=== PATIENT | female | born 1945 | race Caucasian/White ===

== ENCOUNTER 2016-06-04 08:55 | Outpatient (CLI) | payer MEDICARE, OTHER | END 2016-06-04 08:56 | disposition home or self-care (01) | DX: R94.5 Abnormal results of liver function studies (principal); E78.5 Hyperlipidemia, unspecified; Z79.899 Other long term (current) drug therapy ==

== ENCOUNTER 2016-06-22 10:27 | Outpatient (CLI) | payer MEDICARE, OTHER | END 2016-06-22 10:28 | disposition home or self-care (01) | DX: N30.01 Acute cystitis with hematuria (principal) ==

== ENCOUNTER 2017-12-27 11:47 | Outpatient (CLI) | payer MEDICARE, OTHER ==
--- NOTE | 2017-12-27 16:49 | XRAY Report ---
Procedure Date: 12/27/2017 Accession Number: [id number] / [id number] Procedure: XR - Ankle 3 View LT CPT Code: FULL RESULT: EXAM: Ankle 3 View LT DATE: 12/27/2017 11:56 AM CLINICAL HISTORY: CHRONIC L ANKLE GOIUT,ANTERIOR COMPARISON: None. TECHNIQUE: 3 views. FINDINGS: Bones: Normal. No fractures or bone lesions. Joints: Normal. No tibiotalar joint effusion. No subluxations. Soft Tissues: Normal. No soft tissue swelling. IMPRESSION: No significant osseous erosions and no joint effusion is identified RADIA
== END 2017-12-27 11:48 | disposition home or self-care (01) ==
LOC: DI 11:47
PROVIDERS: ATTEND Podiatrist
DX: M1A.0720 Idiopathic chronic gout, left ankle and foot, without tophus (tophi) (principal)

== ENCOUNTER 2018-03-10 08:00 | Outpatient (CLI) | payer MEDICARE, OTHER | END 2018-03-10 08:01 | disposition home or self-care (01) | LOC: LAB.R 08:00 | PROVIDERS: ATTEND Physician Assistant Medical | DX: N30.00 Acute cystitis without hematuria (principal) | CPT/HCPCS: 87077; 87086 ==

== ENCOUNTER 2018-05-06 08:00 | Outpatient (CLI) | payer MEDICARE, OTHER | END 2018-05-06 23:59 | disposition home or self-care (01) | LOC: LAB.R 08:00 | PROVIDERS: ATTEND Physician Assistant Medical | DX: N30.00 Acute cystitis without hematuria (principal) | CPT/HCPCS: 87086 ==

== ENCOUNTER 2018-06-02 08:06 | Outpatient (CLI) | payer MEDICARE, OTHER ==
[2018-06-02 08:45] LABS: ALBUMIN 3.9 g/dL (3.2-5.5); ALBUMIN/GLOBULIN RATIO 1.5 (1.0-2.2); ALKALINE PHOSPHATASE 82 IU/L (42-121); ALT ALANINE AMINOTRANSFERASE 52 IU/L (10-60); AST ASPARTATE AMINOTRANSFERASE 37 IU/L (10-42); BILIRUBIN,TOTAL 0.7 mg/dL (0.2-1.0); BUN - BLOOD UREA NITROGEN 16 mg/dL (6-20); CARBON DIOXIDE - CO2 29 mmol/L (21-32); CHLORIDE 102 mmol/L (101-111); CHOL/HDL RATIO 2.2 (<4.4); CHOLESTEROL 168 mg/dL; CREATININE 0.6 mg/dL (0.4-1.0); GFR - MDRD 98 (>89); GLUCOSE 97 mg/dL (70-100); HDL CHOLESTEROL 76 mg/dL; LDL CHOLESTEROL,CALCULATED 73 mg/dL; SODIUM 137 mmol/L (135-145); TOTAL PROTEIN 6.5 g/dL (6.7-8.2); VLDL CHOLESTEROL 19 mg/dL
== END 2018-06-02 08:07 | disposition home or self-care (01) ==
LOC: LAB 08:06
PROVIDERS: ATTEND Physician Assistant Medical
DX: C91.00 Acute lymphoblastic leukemia not having achieved remission (principal); M19.90 Unspecified osteoarthritis, unspecified site; E78.5 Hyperlipidemia, unspecified; I10 Essential (primary) hypertension; Z79.899 Other long term (current) drug therapy
CPT/HCPCS: 36415; 80053; 80061; 83721; 84443

== ENCOUNTER 2018-06-05 08:00 | Outpatient (CLI) | payer MEDICARE, OTHER | END 2018-06-05 23:59 | disposition home or self-care (01) | LOC: LAB.R 08:00 | PROVIDERS: ATTEND Physician Assistant Medical | DX: N30.00 Acute cystitis without hematuria (principal) | CPT/HCPCS: 87086 ==

== ENCOUNTER 2018-06-13 14:57 | Outpatient (CLI) | payer MEDICARE, OTHER ==
--- NOTE | 2018-06-14 16:02 | Ultrasound Report ---
Reason: RECURRENT BACTERIAL CYSTITIS Procedure Date: 06/13/2018 Accession Number: [id number] / [id number] Procedure: US - Retroperitoneal CPT Code: FULL RESULT: EXAM: RENAL ULTRASOUND EXAM DATE: 06/13/2018 04:06 PM. CLINICAL HISTORY: Recurrent bacterial cystitis. COMPARISON: 08/02/2012 9:08 AM. TECHNIQUE: Real-time scanning was performed with static images obtained. FINDINGS: Right Kidney: 9.5 x 4.7 x 5.8 cm. Normal parenchymal echotexture. Mild hydronephrosis. No visualized shadowing stones. Left Kidney: 10.3 x 5.3 x 5.9 cm. Normal parenchymal echotexture. Mild hydronephrosis. No visualized shadowing stones. Bladder: Bilateral jets seen. Initial bladder volume 591 mL. Postvoid bladder volume 80 mL. Other: None. IMPRESSION: Mild bilateral hydronephrosis and 80 mL postvoid residual, raising concern for bladder outlet obstruction. RADIA
== END 2018-06-13 14:58 | disposition home or self-care (01) ==
LOC: DI 14:57
PROVIDERS: ATTEND Physician Assistant Medical
DX: N13.30 Unspecified hydronephrosis (principal)
CPT/HCPCS: 76770

== ENCOUNTER 2018-06-18 08:00 | Outpatient (CLI) | payer MEDICARE, OTHER | END 2018-06-18 23:59 | disposition home or self-care (01) | LOC: LAB.R 08:00 | PROVIDERS: ATTEND Physician Assistant Medical | DX: N39.0 Urinary tract infection, site not specified (principal) | CPT/HCPCS: 87086 ==

== ENCOUNTER 2018-08-01 09:53 | Outpatient (CLI) | payer MEDICARE, OTHER ==
--- NOTE | 2018-08-04 16:43 | DEXA Report ---
Reason: POSTMENOPAUSAL Procedure Date: 08/01/2018 Accession Number: [id number] / [id number] Procedure: DEX - Dexa Spine and/or Hip CPT Code: FULL RESULT: EXAM: Dexa Spine and/or Hip DATE: 08/01/2018 10:11 AM CLINICAL HISTORY: POSTMENOPAUSAL TECHNIQUE: Dual energy x-ray absorptiometry (DXA) was performed on a [employer] System. Regions measured are the AP Spine, femoral neck, and if needed forearm. COMPARISON: None. In accordance with the International Society for Clinical Densitometry (ISCD) guidelines, data from previous exams may be reanalyzed using current recommendations and techniques. This is done to allow a more accurate basis for comparison with the current study. FINDINGS: The data for the lumbar spine is as follows: BMD (g/cm/cm) T-SCORE Z-SCORE REGION L1 1.257 1.1 2.5 L2 1.363 1.4 2.8 L3 1.463 2.2 3.6 L4 1.378 1.5 2.9 TOTAL 1.368 1.6 3.0 NOTE: All evaluable vertebrae are used for classification The data for the hip is as follows: BMD (g/cm/cm) T-SCORE Z-SCORE REGION Neck 0.962 -0.5 1.1 TOTAL 1.074 0.5 1.9 NOTE: The femoral neck or total proximal femur, whichever is lowest, is used for classification. IMPRESSION: THE WHO CLASSIFICATION BASED ON THE INTERNATIONAL REFERENCE STANDARD IS NORMAL. THE FRACTURE RISK IS NOT INCREASED. RECOMMENDATION: Patients with diagnosis of osteoporosis or osteopenia should have regular bone mineral density assessment. For those eligible for Medicare, routine testing is allowed once every 2 years. Testing frequency can be increased for patients who have rapidly progressing disease or for those who are receiving medical therapy to restore bone mass. COMMENT: World Health Organization (WHO) definitions for osteoporosis and osteopenia: NORMAL BMD: T-score at -1.0 or higher, fracture risk is low OSTEOPENIA BMD: T-score between -1.0 and -2.5, fracture risk is increased. OSTEOPOROSIS BMD: T-score at -2.5 or lower, fracture risk is high. National Osteoporosis Foundation recommends: 1. Obtain adequate dietary calcium (at least 1200 mg per day) and vitamin D (400-800 international units per day). 2. Participate, as appropriate, in regular weightbearing and muscle-strengthening exercise. 3. Avoid tobacco use and reduce alcohol and caffeine intake. 4. For more detailed information see the website at www.NOF.org.
== END 2018-08-01 09:54 | disposition home or self-care (01) ==
LOC: DI 09:53
PROVIDERS: ATTEND Physician Assistant Medical
DX: Z78.0 Asymptomatic menopausal state (principal)
CPT/HCPCS: 77080

== ENCOUNTER 2018-09-01 09:45 | Outpatient (CLI) | payer MEDICARE, OTHER ==
[2018-09-01 11:03] LABS: CREATININE 0.7 mg/dL (0.4-1.0)
== END 2018-09-01 09:46 | disposition home or self-care (01) ==
LOC: LAB 09:45
PROVIDERS: ATTEND Urology
DX: R31.29 Other microscopic hematuria (principal)
CPT/HCPCS: 36415; 82565; 84520

== ENCOUNTER 2019-11-20 08:45 | Outpatient (CLI) | payer MEDICARE, OTHER ==
--- NOTE | 2019-11-23 09:29 | Mammography Report ---
BILATERAL DIGITAL SCREENING MAMMOGRAM 3D/2D: 11/20/2019 CLINICAL: Routine screening. Comparison is made to exams dated: 08/05/2018 mammogram, 08/05/2017 mammogram, and 06/09/2016 mammogram - [facility]. The tissue of both breasts is heterogeneously dense. This may lower the sensitivity of mammography. No significant masses, calcifications, or other findings are seen in either breast. There has been no significant interval change. IMPRESSION: NEGATIVE There is no mammographic evidence of malignancy. A 1 year screening mammogram is recommended. This exam was interpreted at Station ID: [id number]. NOTE: For mammograms, a report in lay terms will be sent to the patient. Approximately 15% of breast malignancies will not be visualized mammographically. In the management of a palpable breast mass, a negative mammogram must not discourage biopsy of a clinically suspicious lesion. Electronically Signed By: Sindhu park/junaa:11/20/2019 09:41:27 ACR BI-RADS Category 1: Negative 3341F PARENCHYMAL PATTERN: (D) - The breast(s) demonstrate(s) heterogeneously dense fibroglandular maria luisa humphries. BI-RADS CATEGORY: (1) - 1 RECOMMENDATION: (ANNUAL) - Recommend routine annual screening mammography. [id number] 1 year screening LATERALITY: (B)
== END 2019-11-20 08:46 | disposition home or self-care (01) ==
LOC: DI 08:45
PROVIDERS: ATTEND Family Medicine
DX: Z12.31 Encounter for screening mammogram for malignant neoplasm of breast (principal)
CPT/HCPCS: 77063; 77067

== ENCOUNTER 2020-12-15 08:00 | Outpatient (CLI) | payer MEDICARE, OTHER | END 2020-12-15 23:59 | disposition home or self-care (01) | LOC: LAB.WCP 08:00 | PROVIDERS: ATTEND Family Medicine | DX: N39.0 Urinary tract infection, site not specified (principal) | CPT/HCPCS: 87086 ==

== ENCOUNTER 2021-02-09 08:00 | Outpatient (CLI) | payer MEDICARE, OTHER ==
[2021-02-09 12:17] LABS: BILIRUBIN,URINE NEGATIVE (NEGATIVE); GLUCOSE, URINE (UA) NEGATIVE (NEGATIVE); KETONES,URINE (UA) NEGATIVE (NEGATIVE); LEUKOCYTE ESTERASE, URINE NEGATIVE (NEGATIVE); NITRITE,URINE NEGATIVE (NEGATIVE); OCCULT BLOOD,URINE TRACE-INTA (NEGATIVE); PROTEIN,URINE NEGATIVE (NEGATIVE); UROBILINOGEN,URINE 0.2 (NORMAL) E.U./dL (NORMAL)
[2021-02-09 13:08] LABS: BACTERIA,URINE Few /HPF (None Seen); CLARITY,URINE CLEAR (CLEAR); MUCUS,URINE Moderate Strands; RBC,URINE 0-5 /HPF (0-5); SQUAMOUS EPITHELIAL CELL,UR FEW Squamous (<= Few); WBC,URINE 0-3 /HPF (0-5)
== END 2021-02-09 23:59 | disposition home or self-care (01) ==
LOC: LAB.WCP 08:00
PROVIDERS: ATTEND Physician Assistant Medical
DX: N39.0 Urinary tract infection, site not specified (principal)
CPT/HCPCS: 81001; 87086

== ENCOUNTER 2021-02-10 08:00 | Outpatient (CLI) | payer MEDICARE, OTHER | END 2021-02-10 23:59 | disposition home or self-care (01) | LOC: LAB.WCP 08:00 | PROVIDERS: ATTEND Family Medicine | DX: N39.0 Urinary tract infection, site not specified (principal) | CPT/HCPCS: 87086 ==

== ENCOUNTER 2021-02-15 13:36 | Outpatient (CLI) | payer MEDICARE, OTHER | END 2021-02-15 13:37 | disposition home or self-care (01) | LOC: COV 13:36 | PROVIDERS: ATTEND Family Medicine | DX: U07.1 COVID-19 (principal) ==

== ENCOUNTER 2021-03-15 08:00 | Outpatient (CLI) | payer MEDICARE, OTHER ==
[2021-03-15 11:50] LABS: BASOPHILS # (AUTO) 0.1 10^3/uL (0.0-0.1); BASOPHILS % (AUTO) 1.4 %; EOSINOPHILS # (AUTO) 0.2 10^3/uL (0.0-0.7); EOSINOPHILS % (AUTO) 4.3 %; HCT - HEMATOCRIT 39.5 % (37.0-47.0); HGB - HEMOGLOBIN 12.7 g/dL (12.0-16.0); LYMPHOCYTES # (AUTO) 1.8 10^3/uL (1.5-3.5); LYMPHOCYTES % (AUTO) 34.9 %; MEAN CORPUSCULAR HGB CONC 32.2 g/dL (32.0-36.0); MEAN CORPUSCULAR VOLUME 93.4 fL (81.0-99.0); MEAN PLATELET VOLUME 12.6 fL (7.9-10.8); MONOCYTES # (AUTO) 0.7 10^3/uL (0.0-1.0); NEUTROPHILS # (AUTO) 2.3 10^3/uL (1.5-6.6); NEUTROPHILS % (AUTO) 44.8 %; PLT - PLATELET COUNT 132 10^3/uL (130-450); RED BLOOD COUNT 4.23 10^6/uL (4.20-5.40); RED CELL DISTRIBUTION WIDTH 16.4 % (12.0-15.0); WHITE BLOOD COUNT 5.1 x10^3/uL (4.8-10.8)
[2021-03-15 12:12] LABS: ALBUMIN 3.2 g/dL (3.2-5.5); ALBUMIN/GLOBULIN RATIO 1.1 (1.0-2.2); BILIRUBIN,TOTAL 1.8 mg/dL (0.2-1.0); CALCIUM 8.9 mg/dL (8.5-10.3); CREATININE 0.7 mg/dL (0.4-1.0)
== END 2021-03-15 23:59 | disposition home or self-care (01) ==
LOC: LAB.N 08:00
PROVIDERS: ATTEND Nurse Practitioner
DX: B34.9 Viral infection, unspecified (principal); R53.83 Other fatigue; R53.81 Other malaise; Z20.822 Contact with and (suspected) exposure to COVID-19
CPT/HCPCS: 36415; 80053; 85025; U0004

== ENCOUNTER 2021-03-15 08:00 | Outpatient (CLI) | payer MEDICARE, OTHER | END 2021-03-15 23:59 | disposition home or self-care (01) | LOC: LAB.N 08:00 | PROVIDERS: ATTEND Nurse Practitioner | DX: R53.81 Other malaise (principal); R53.83 Other fatigue ==

== ENCOUNTER 2021-03-16 16:22 | Outpatient (CLI) | payer MEDICARE, OTHER ==
[2021-03-16 21:04] LABS: ALBUMIN/GLOBULIN RATIO 1.1 (1.0-2.2); CALCIUM 8.7 mg/dL (8.5-10.3); CREATININE 0.9 mg/dL (0.4-1.0); POTASSIUM 4.4 mmol/L (3.5-5.0); TOTAL PROTEIN 5.8 g/dL (6.7-8.2)
[2021-03-18 10:05] LABS: HEPATITIS A IGM NON-REACTIVE (NON-REACTIVE); HEPATITIS B CORE ANTIBODY IGM NON-REACTIVE (NON-REACTIVE); HEPATITIS B SURFACE ANTIGEN NON-REACTIVE (NON-REACTIVE); HEPATITIS C ANTIBODY NON-REACTIVE (NON-REACTIVE)
== END 2021-03-16 16:23 | disposition home or self-care (01) ==
LOC: LAB.N 16:22
PROVIDERS: ATTEND Family Medicine
DX: R79.89 Other specified abnormal findings of blood chemistry (principal)
CPT/HCPCS: 36415; 80053; 80074

== ENCOUNTER 2021-03-17 03:55 | Emergency (ER) | payer MEDICARE, OTHER ==
--- NOTE | 2021-03-17 04:01 | ED Physician Documentation ---
History of Present Illness - Stated complaint Stated Complaint: WEAKNESS/N/V/FEVER - History obtained from History obtained from: Patient - History of Present Illness Timing: How many weeks ago (1) Pain level now: 2 (only pain c/o is my rectum (per patient) which she attributes to diarrhea) Improved by: no ameliorating factors Worsened by: no exacerbating factors Associated symptoms: nausea, poor appetite - Additonal information Additional information: c/o 1 week of generalized weakness, poor appetite, nausea and diarrhea. She describes poor po intake over past week due to no appetite although she denies abdominal pain. She has nausea but no vomiting; she tolerates PO but describes a decreased appetite to the point of aversion to the thought of eating or drinking. She is COVID vaccinated (Moderna) but had PCR COVID positive result last month (02/15). She had outpatient blood tests yesterday and two days ago and was noted to have abnormal LFTs which is new for her. She has been having fevers at home Tmax 101, most recent measurement was 2 days ago; she did not take her temperature today due to malaise and generalized weakness Review of Systems Constitutional: reports: Fever, Chills, Sweats Cardiac: reports: Reviewed and negative Respiratory: reports: Reviewed and negative GI: reports: Nausea, Diarrhea. denies: Abdominal Pain, Abdominal Swelling, Vomiting, Bloody / black stool : denies: Dysuria, Frequency Neurologic: reports: Generalized weakness. 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 HEENT: Tonsil/Adenoidectomy - Present Medications Home Medications: Ambulatory Orders Medication Instructions Recorded Confirmed Aspirin Chewable [[place]ito 81 mg PO DAILY 01/12/13 03/17/21 Aspirin] lisinopriL [Zestril] 10 mg PO DAILY 01/12/13 03/17/21 Atorvastatin [Lipitor] 40 mg PO DAILY 01/10/15 03/17/21 Cyanocobalamin (Vitamin B-12) 1 cap PO DAILY 06/17/17 03/17/21 [Vitamin B-12] Iron Polysaccharide Complex 1 cap PO DAILY 06/17/17 03/17/21 [Ferrex 150] ALPRAZolam [Alprazolam] 1 tab PO DAILY 11/04/17 03/17/21 Ibrutinib [Imbruvica] 1 tab PO DAILY 11/04/17 03/17/21 Propranolol [Inderal] 10 mg PO BID 10/13/18 03/17/21 Meloxicam [Mobic] 15 mg PO QID 03/17/21 03/17/21 Ondansetron Odt [Zofran] 4 mg TL Q6H PRN #14 tablet 03/17/21 - Allergies Allergies/Adverse Reactions: Allergies Allergy/AdvReac Type Severity Reaction Status Date / Time Sulfa (Sulfonamide Allergy Respiratory Verified 03/17/21 04:13 Antibiotics) PD ED PE NORMAL - Vitals Vital signs reviewed: Yes - General General: Alert and oriented X 3, No acute distress, Well developed/nourished - HEENT HEENT: Other (tacky mucous membranes) - Neck Neck: Supple, no meningeal sign - Cardiac Cardiac: RRR, No murmur - Respiratory Respiratory: No respiratory distress, Clear bilaterally - Abdomen Abdomen: Soft, Non distended, Other (mild TTP across upper abdomen without guarding or rebound) - Back Back: No CVA TTP - Derm Derm: Normal color, Warm and dry - Extremities Extremities: No edema - Neuro Neuro: Alert and oriented X 3 Results - Vitals Vitals: Oxygen O2 Source Room air - Labs Labs: Laboratory Tests 03/17/21 03/17/21 03/17/21 04:24 04:24 04:24 WBC 6.5 RBC 4.11 L Hgb 12.3 Hct 38.0 MCV 92.5 MCH 29.9 MCHC 32.4 RDW 16.0 H Plt Count 132 MPV 12.0 H Neut # (Auto) 3.9 Lymph # (Auto) 1.6 [place] # (Auto) 0.8 Eos # (Auto) 0.1 Baso # (Auto) 0.1 Absolute Nucleated RBC 0.00 Nucleated RBC % 0.0 PT 13.1 H INR 1.2 APTT 24.8 L Sodium 136 Potassium 3.8 Chloride 99 L Carbon Dioxide 25 Anion Gap 12.0 BUN 14 Creatinine 1.0 Estimated GFR (MDRD) 54 L Glucose 147 H Lactic Acid Calcium 8.5 Total Bilirubin 2.3 H AST 227 H ALT 266 H Alkaline Phosphatase 456 H Total Protein 5.7 L Albumin 2.9 L Globulin 2.8 Albumin/Globulin Ratio 1.0 Lipase 37 Nasal Adenovirus (PCR) Nasal B. parapertussis DNA (PCR) Nasal Coronavir 229E PCR Nasal Coronavir HKU1 PCR Nasal Coronavir NL63 PCR Nasal Coronavir OC43 PCR Nasal Enterovir/Rhinovir PCR Nasal Influenza B PCR Nasal Influenza A PCR Nasal Parainfluen 1 PCR Nasal Parainfluen 2 PCR Nasal Parainfluen 3 PCR Nasal Parainfluen 4 PCR Nasal RSV (PCR) Nasal B.pertussis DNA PCR Nasal C.pneumoniae (PCR) [place] Human Metapneumo PCR Nasal M.pneumoniae (PCR) Nasal SARS-CoV-2 (PCR) Hepatitis A IgM Ab Hep Bs Antigen Hep B Core IgM Ab Hepatitis C Antibody Hep C Ab Signal/Cutoff 03/17/21 03/17/21 03/17/21 04:24 04:24 04:25 WBC RBC Hgb Hct MCV MCH MCHC RDW Plt Count MPV Neut # (Auto) Lymph # (Auto) [place] # (Auto) Eos # (Auto) Baso # (Auto) Absolute Nucleated RBC Nucleated RBC % PT INR APTT Sodium Potassium Chloride Carbon Dioxide Anion Gap BUN Creatinine Estimated GFR (MDRD) Glucose Lactic Acid 1.6 Calcium Total Bilirubin AST ALT Alkaline Phosphatase Total Protein Albumin Globulin Albumin/Globulin Ratio Lipase Nasal Adenovirus (PCR) NOT DETECTED Nasal B. parapertussis DNA (PCR) NOT DETECTED Nasal Coronavir 229E PCR NOT DETECTED Nasal Coronavir HKU1 PCR NOT DETECTED Nasal Coronavir NL63 PCR NOT DETECTED Nasal Coronavir OC43 PCR NOT DETECTED Nasal Enterovir/Rhinovir PCR NOT DETECTED Nasal Influenza B PCR NOT DETECTED Nasal Influenza A PCR NOT DETECTED Nasal Parainfluen 1 PCR NOT DETECTED Nasal Parainfluen 2 PCR NOT DETECTED Nasal Parainfluen 3 PCR NOT DETECTED Nasal Parainfluen 4 PCR NOT DETECTED Nasal RSV (PCR) NOT DETECTED Nasal B.pertussis DNA PCR NOT DETECTED Nasal C.pneumoniae (PCR) NOT DETECTED [place] Human Metapneumo PCR NOT DETECTED Nasal M.pneumoniae (PCR) NOT DETECTED Nasal SARS-CoV-2 (PCR) DETECTED A Hepatitis A IgM Ab NON-REACTIVE Hep Bs Antigen NON-REACTIVE Hep B Core IgM Ab NON-REACTIVE Hepatitis C Antibody NON-REACTIVE Hep C Ab Signal/Cutoff 0.00 - Rads (name of study) RUQ US Radiology: Prelim report reviewed, See rad report PD MEDICAL DECISION MAKING - ED course Complexity details: reviewed old records, reviewed results, re-evaluated patient, considered differential, d/w patient ED course: presents for 1 week of nausea, poor appetite resulting in poor PO intake. She is COVID positive on tonights testing, although she was noted to be COVID positive last month as well despite having been COVID vaccinated. US reveals GB wall thickening but no evidence of gallstones, normal CBD measurement, negative sonographic [place] sign. Aferbile in ED with normal WBC and normal lactate. 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 Previous LFTs have been normal except for minimal elevations in billirubin (no higher than 1.1 and mildly elevated alkaline phosphatase on a few previous results). I discussed results with Dr. Watson, surgeon distribution center assistant for [facility]. Given that patient has minimal tenderness on exam, is in NAD, resolution of nausea with IV zorfran and lack of abdominal pain c/o, recommends outpatient follow up and return precautions but no indication/necessity for admission at this time. I reviewed results with patient and she is comfortable with this plan. She was given 2 liters NS in ED and 4mg IV zofran and reported improvement in symptoms with these measures. I discussed US results with patient including incidental finding of pancreatic abnormality of indeterminate nature and instructed her to follow up with her primary care provider for both her acute symptoms as well as consideration of further testing regarding the pancreatic US finding. On reexamination prior to discharge she is in NAD, mucous membranes are moist and her abdomen is nontender to palpation. Departure - Departure Disposition: 01 Home, Self Care Clinical Impression: Abnormal LFTs (liver function tests), COVID-19 Nausea & vomiting Qualifiers: Vomiting type: unspecified Vomiting Intractability: non-intractable Qualified Code(s): R11.2 - Nausea with vomiting, unspecified Instructions: ED Vomiting Diarrhea Nonspecific Ad Follow-Up: Charly Paz MD [Primary Care Provider] - Prescriptions: Ondansetron Odt [Zofran] 4 mg TL Q6H PRN #14 tablet PRN Reason: Nausea / Vomiting Comments: A prescription for ondansetron (antinausea medication) has been electronically submitted to [facility] pharmacy in [place] Discharge Date/Time: 03/17/21 11:00
[2021-03-17 04:35] LABS: BASOPHILS # (AUTO) 0.1 10^3/uL (0.0-0.1); BASOPHILS % (AUTO) 1.1 %; EOSINOPHILS # (AUTO) 0.1 10^3/uL (0.0-0.7); HGB - HEMOGLOBIN 12.3 g/dL (12.0-16.0); LYMPHOCYTES # (AUTO) 1.6 10^3/uL (1.5-3.5); LYMPHOCYTES % (AUTO) 25.1 %; MEAN CORPUSCULAR HEMOGLOBIN 29.9 pg (27.0-31.0); MEAN CORPUSCULAR HGB CONC 32.4 g/dL (32.0-36.0); MEAN CORPUSCULAR VOLUME 92.5 fL (81.0-99.0); MONOCYTES # (AUTO) 0.8 10^3/uL (0.0-1.0); MONOCYTES % (AUTO) 11.6 %; NEUTROPHILS # (AUTO) 3.9 10^3/uL (1.5-6.6); NEUTROPHILS % (AUTO) 59.6 %; PLT - PLATELET COUNT 132 10^3/uL (130-450); RED BLOOD COUNT 4.11 10^6/uL (4.20-5.40); WHITE BLOOD COUNT 6.5 x10^3/uL (4.8-10.8)
[2021-03-17 04:42] LABS: INR 1.2 (0.8-1.2); PT - PROTHROMBIN TIME 13.1 secs (9.9-12.6)
[2021-03-17 04:46] LABS: ALBUMIN 2.9 g/dL (3.2-5.5); BILIRUBIN,TOTAL 2.3 mg/dL (0.2-1.0); CALCIUM 8.5 mg/dL (8.5-10.3); POTASSIUM 3.8 mmol/L (3.5-5.0); TOTAL PROTEIN 5.7 g/dL (6.7-8.2)
[2021-03-17 04:49] LABS: PARTIAL THROMBOPLASTIN TIME 24.8 secs (24.9-33.3)
[2021-03-17] MEDS ORDERED: ONDANSETRON 4 MG/2 ML VIAL IVP STA (04:53)
[2021-03-17] MEDS ORDERED: SODIUM CHLORIDE 0.9% 1,000 ML IV STA ×2 (04:53→08:59)
[2021-03-17 06:09] LABS: CORONAVIRUS 229E-RESP PCR NOT DETECTED; CORONAVIRUS HKU1-RESP PCR NOT DETECTED; CORONAVIRUS NL63-RESP PCR NOT DETECTED; CORONAVIRUS OC43-RESP PCR NOT DETECTED
[2021-03-17 06:11] LABS: B. PARAPERTUSSIS- RESP PCR PAN NOT DETECTED; B. PERTUSSIS- RESP PCR PANEL NOT DETECTED; C. PNEUMONIAE- RESP PCR PANEL NOT DETECTED; HUMAN METAPNEUMOVIRUS NOT DETECTED; INFLUENZA A- RESP PCR PANEL NOT DETECTED; INFLUENZA B - RESP PCR PANEL NOT DETECTED; M. PNEUMONIAE- RESP PCR PANEL NOT DETECTED; PARAINFLUENZA VIRUS 1 NOT DETECTED; PARAINFLUENZA VIRUS 2 NOT DETECTED; PARAINFLUENZA VIRUS 3 NOT DETECTED; PARAINFLUENZA VIRUS 4 NOT DETECTED; RHINOVIRUS/ENTEROVIRUS NOT DETECTED; RSV- RESP PCR PANEL NOT DETECTED; SARS-CoV-2 -RESP PCR PANEL DETECTED
--- NOTE | 2021-03-17 08:14 | Ultrasound Report ---
PROCEDURE: Abdomen Limited INDICATIONS: Fever, abnormal LFTs, abdominal tenderness TECHNIQUE: Real-time focused scanning was performed of the abdomen, with image documentation. COMPARISON: Reference is made to the renal ultrasound dated June 13, 2018 FINDINGS: AORTA: The visualized abdominal aorta is normal. IVC: The visualized IVC is normal. LIVER: The liver is normal in size and contour. No focal abnormalities are seen. The portal vein is patent. PANCREAS: A hypoechoic lesion is seen in the pancreatic head region, measuring 1.4 x 0.6 x 0.7 cm. No pancreatic duct dilatation is appreciated. Gallbladder and biliary tree: Gallbladder wall thickening, measuring up to 4.7 mm. Small amount of dependent echogenic material, which may reflect sludge and/or stones. No pericholecystic fluid or son ographic Lazar sign. The CBD measures 3.2 mm. RIGHT KIDNEY: Hypoechoic lesions in the parapelvic region, which may reflect cyst. Punctate echogen ic focus in the lower pole, measuring up to 4.7 mm Measures 11.1 cm in length. The renal cortex measu res 1.4 cm. Cortical hypoattenuating lesion in the lower pole measuring up to 2.4 cm, compatible with a cyst. No evidence for ascites. IMPRESSION: 1.Hypoechoic lesion in the region of the pancreatic head, which is nonspecific. Differential consider ations include a pancreatic cystic lesion or pseudocyst. Consider CT or MR imaging for further evalua tion. 2.Gallbladder wall thickening with small amount of dependent echogenic material, which may reflect sl udge and/or stones. 3.Right renal parapelvic and cortical cysts. Reviewed by: Ariel Bay MD on 03/17/2021 8:13 AM PDT Approved by: Ariel Bay MD on 03/17/2021 8:13 AM PDT Station ID: [id number]
[2021-03-17 09:18] VITALS: BP 158/71
[2021-03-18 10:05] LABS: HEPATITIS A IGM NON-REACTIVE (NON-REACTIVE); HEPATITIS B CORE ANTIBODY IGM NON-REACTIVE (NON-REACTIVE); HEPATITIS B SURFACE ANTIGEN NON-REACTIVE (NON-REACTIVE); HEPATITIS C ANTIBODY NON-REACTIVE (NON-REACTIVE)
== END 2021-03-17 11:00 | disposition home or self-care (01) ==
LOC: ED 03:55
DX: U07.1 COVID-19 (principal); R94.5 Abnormal results of liver function studies; R11.2 Nausea with vomiting, unspecified; R93.3 Abnormal findings on diagnostic imaging of other parts of digestive tract
CPT/HCPCS: 0202U; 36415; 80053; 80074; 83605; 83690; 85025; 85610; 85730; 96361; 96374; 99283

== ENCOUNTER 2021-03-28 08:00 | Outpatient (CLI) | payer MEDICARE, OTHER ==
[2021-03-28 18:20] LABS: BASOPHILS # (AUTO) 0.1 10^3/uL (0.0-0.1); BASOPHILS % (AUTO) 1.5 %; EOSINOPHILS # (AUTO) 0.6 10^3/uL (0.0-0.7); EOSINOPHILS % (AUTO) 6.6 %; HCT - HEMATOCRIT 37.4 % (37.0-47.0); HGB - HEMOGLOBIN 11.6 g/dL (12.0-16.0); LYMPHOCYTES # (AUTO) 3.3 10^3/uL (1.5-3.5); LYMPHOCYTES % (AUTO) 34.8 %; MEAN CORPUSCULAR HEMOGLOBIN 30.3 pg (27.0-31.0); MEAN CORPUSCULAR VOLUME 97.7 fL (81.0-99.0); MEAN PLATELET VOLUME 11.8 fL (7.9-10.8); MONOCYTES # (AUTO) 0.9 10^3/uL (0.0-1.0); MONOCYTES % (AUTO) 9.4 %; NEUTROPHILS # (AUTO) 4.4 10^3/uL (1.5-6.6); NEUTROPHILS % (AUTO) 47.1 %; PLT - PLATELET COUNT 333 10^3/uL (130-450); RED BLOOD COUNT 3.83 10^6/uL (4.20-5.40); RED CELL DISTRIBUTION WIDTH 16.9 % (12.0-15.0); WHITE BLOOD COUNT 9.4 x10^3/uL (4.8-10.8)
[2021-03-28 18:57] LABS: ALBUMIN 2.6 g/dL (3.2-5.5); BILIRUBIN,TOTAL 1.1 mg/dL (0.2-1.0); CALCIUM 9.5 mg/dL (8.5-10.3); CREATININE 0.5 mg/dL (0.4-1.0); TOTAL PROTEIN 5.2 g/dL (6.7-8.2)
== END 2021-03-28 23:59 | disposition home or self-care (01) ==
LOC: LAB.WCP 08:00
PROVIDERS: ATTEND Family Medicine
DX: R79.89 Other specified abnormal findings of blood chemistry (principal)
CPT/HCPCS: 36415; 80053; 85025

== ENCOUNTER 2021-04-11 08:00 | Outpatient (CLI) | payer MEDICARE, OTHER ==
[2021-04-11 12:54] LABS: BILIRUBIN,URINE NEGATIVE (NEGATIVE); GLUCOSE, URINE (UA) NEGATIVE (NEGATIVE); KETONES,URINE (UA) NEGATIVE (NEGATIVE); LEUKOCYTE ESTERASE, URINE SMALL (NEGATIVE); NITRITE,URINE NEGATIVE (NEGATIVE); OCCULT BLOOD,URINE NEGATIVE (NEGATIVE); PH,URINE 7.5 PH (5.0-7.5); PROTEIN,URINE NEGATIVE (NEGATIVE); UROBILINOGEN,URINE 0.2 (NORMAL) E.U./dL (NORMAL)
[2021-04-11 12:57] LABS: CLARITY,URINE CLEAR (CLEAR)
[2021-04-11 13:08] LABS: THYROID STIMULATING HORMONE 1.52 uIU/mL (0.34-5.60)
[2021-04-11 13:26] LABS: BACTERIA,URINE Rare /HPF (None Seen); EPITHELIAL CELLS,UR MOD Transitional /HPF (<= Few); MUCUS,URINE Moderate Strands; RBC,URINE 0-5 /HPF (0-5); SQUAMOUS EPITHELIAL CELL,UR FEW Squamous (<= Few)
== END 2021-04-11 23:59 | disposition home or self-care (01) ==
LOC: LAB.WCP 08:00
PROVIDERS: ATTEND Family Medicine
DX: R63.0 Anorexia (principal); E88.09 Other disorders of plasma-protein metabolism, not elsewhere classified; C91.00 Acute lymphoblastic leukemia not having achieved remission; R06.09 Other forms of dyspnea
CPT/HCPCS: 36415; 81001; 83880; 84134; 84443; 87086

== ENCOUNTER 2021-08-04 08:27 | Outpatient (CLI) | payer MEDICARE, OTHER | END 2021-08-04 08:28 | disposition home or self-care (01) | LOC: LAB 08:27 | PROVIDERS: ATTEND Family Medicine | DX: R73.9 Hyperglycemia, unspecified (principal) ==

== ENCOUNTER 2022-08-31 17:50 | Emergency (ER) | payer MEDICARE, OTHER ==
--- NOTE | 2022-08-31 18:22 | ED Physician Documentation ---
History of Present Illness - Stated complaint Stated Complaint: SORE THROAT,FEVER - Chief complaint Chief Complaint: Heent - Additonal information Additional information: 77-year-old female who has a history of chronic lymphocytic leukemia presents to the emergency department for evaluation of 2 days of fevers up to 101, malaise, sore throat and cough. Was seen at a local walk-in clinic where she reportedly tested negative for strep and was advised to come to the ER for further evaluation. Patient reports to me that from the neck up she feels horrible but from the chest down feels otherwise well. She does endorse chronic diarrhea secondary to her ibrutinib 420. Denies chest pain or shortness of air. No dysuria urgency or frequency Review of Systems Constitutional: reports: Fever, Myalgias, Fatigue Nose: reports: Congestion Throat: reports: Sore throat Cardiac: reports: Reviewed and negative Respiratory: reports: Cough GI: reports: Diarrhea, Reviewed and negative : reports: Reviewed and negative Skin: reports: Reviewed and negative Musculoskeletal: reports: Reviewed and negative PD PAST MEDICAL HISTORY - Past Medical History Cardiovascular: Hypertension, High cholesterol Respiratory: Asthma GI: GERD Psych: None Musculoskeletal: Osteoarthritis - Past Surgical History Past Surgical History: Yes General: Colonoscopy Ortho: 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: Hysterectomy HEENT: Tonsil/Adenoidectomy - Present Medications Home Medications: Ambulatory Orders Medication Instructions Recorded Confirmed Aspirin Chewable [[place] Tito 81 mg PO DAILY 01/12/13 06/11/22 Aspirin] lisinopriL [Zestril] 10 mg PO DAILY 01/12/13 06/11/22 Atorvastatin [Lipitor] 40 mg PO DAILY 01/10/15 06/11/22 ALPRAZolam [Alprazolam] 1 tab PO DAILY 11/04/17 06/11/22 Propranolol [Inderal] 10 mg PO BID 10/13/18 06/11/22 Meloxicam [Mobic] 15 mg PO QID 03/17/21 06/11/22 Omeprazole 40 mg PO DAILY 04/03/21 06/11/22 Ibrutinib [Imbruvica] 420 mg PO DAILY 11/21/21 06/11/22 Cefpodoxime Proxetil [Vantin] 100 mg PO Q12H #14 tablet 08/31/22 Lidocaine Topical 4% Soln 5 ml MM TID #50 ml 08/31/22 [Xylocaine Topical 4% Soln] - Allergies Allergies/Adverse Reactions: Allergies Allergy/AdvReac Type Severity Reaction Status Date / Time Sulfa (Sulfonamide Allergy Respiratory Verified 08/31/22 17:59 Antibiotics) - Social History Does the pt smoke?: No Smoking Status: Never smoker Does the pt drink ETOH?: No Does the pt have substance abuse?: No - Immunizations Immunizations are current?: Yes - POLST Patient has POLST: No PD ED PE NORMAL - General General: Alert and oriented X 3, No acute distress - HEENT HEENT: PERRL, Moist mucous membranes, Pharynx benign (Mild posterior oropharynx erythema without tonsillar exudate. Uvula is midline. No soft palate asymmetry or swelling. Mild laryngitis. Full range of motion of the neck. 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 Eye Opening: Spontaneous Motor: Obeys Commands Verbal: Oriented GCS Score: 15 Results - Vitals Vitals: Vital Signs - 24 hr 08/31/22 08/31/22 17:57 20:49 Temperature 36.8 C 37.1 C Heart Rate 94 93 Respiratory 20 18 Rate Blood Pressure 153/72 H 155/70 H O2 Saturation 98 96 Oxygen O2 Source Room air - Labs Labs: Laboratory Tests 08/31/22 08/31/22 08/31/22 18:25 18:25 18:45 WBC 10.9 H RBC 4.32 Hgb 13.0 Hct 40.1 MCV 92.8 MCH 30.1 MCHC 32.4 RDW 15.3 H Plt Count 185 MPV 11.9 H Neut # (Auto) 7.1 H Lymph # (Auto) 2.5 Gooding # (Auto) 1.2 H Eos # (Auto) 0.0 Baso # (Auto) 0.1 Absolute Nucleated RBC 0.00 Nucleated RBC % 0.0 Sodium 137 Potassium 3.6 Chloride 100 L Carbon Dioxide 27 Anion Gap 10.0 BUN 13 Creatinine 0.7 Estimated GFR (MDRD) 81 L Glucose 124 H Calcium 9.0 Total Bilirubin 1.5 H AST 49 H ALT 42 Alkaline Phosphatase 216 H Total Protein 6.8 Albumin 3.8 Globulin 3.0 Albumin/Globulin Ratio 1.3 Lipase 30 Urine Color YELLOW Urine Clarity CLOUDY Urine pH 6.0 Ur Specific [place] 1.020 Urine Protein TRACE Urine Glucose (UA) NEGATIVE Urine Ketones 40 H Urine Occult Blood MODERATE H Urine Nitrite POSITIVE H Urine Bilirubin NEGATIVE Urine Urobilinogen 0.2 (NORMAL) Ur Leukocyte Esterase LARGE H Urine RBC 6-10 H Urine WBC >25 H Ur Squamous Epith Cells RARE Squamous Urine Bacteria Many H Ur Microscopic Review INDICATED Urine Culture Comments INDICATED Nasal Adenovirus (PCR) Nasal B. parapertussis DNA (PCR) Nasal Coronavir 229E PCR Nasal Coronavir HKU1 PCR Nasal Coronavir NL63 PCR Nasal Coronavir OC43 PCR Nasal Enterovir/Rhinovir PCR Nasal Influenza B PCR Nasal Influenza A PCR Nasal Parainfluen 1 PCR Nasal Parainfluen 2 PCR Nasal Parainfluen 3 PCR Nasal Parainfluen 4 PCR Nasal RSV (PCR) Nasal B.pertussis DNA PCR Nasal C.pneumoniae (PCR) Torito Human Metapneumo PCR Nasal M.pneumoniae (PCR) Nasal SARS-CoV-2 (PCR) Group A Strep Rapid 08/31/22 08/31/22 18:45 18:45 WBC RBC Hgb Hct MCV MCH MCHC RDW Plt Count MPV Neut # (Auto) Lymph # (Auto) [place] # (Auto) Eos # (Auto) Baso # (Auto) Absolute Nucleated RBC Nucleated RBC % Sodium Potassium Chloride Carbon Dioxide Anion Gap BUN Creatinine Estimated GFR (MDRD) Glucose Calcium Total Bilirubin AST ALT Alkaline Phosphatase Total Protein Albumin Globulin Albumin/Globulin Ratio Lipase Urine Color Urine Clarity Urine pH Ur Specific [place] Urine Protein Urine Glucose (UA) Urine Ketones Urine Occult Blood Urine Nitrite Urine Bilirubin Urine Urobilinogen Ur Leukocyte Esterase Urine RBC Urine WBC Ur Squamous Epith Cells Urine Bacteria Ur Microscopic Review Urine Culture Comments Nasal Adenovirus (PCR) NOT DETECTED Nasal B. parapertussis DNA (PCR) NOT DETECTED Nasal Coronavir 229E PCR NOT DETECTED Nasal Coronavir HKU1 PCR NOT DETECTED Nasal Coronavir NL63 PCR NOT DETECTED Nasal Coronavir OC43 PCR NOT DETECTED Nasal Enterovir/Rhinovir PCR NOT DETECTED Nasal Influenza B PCR NOT DETECTED Nasal Influenza A PCR NOT DETECTED Nasal Parainfluen 1 PCR NOT DETECTED Nasal Parainfluen 2 PCR NOT DETECTED Nasal Parainfluen 3 PCR NOT DETECTED Nasal Parainfluen 4 PCR NOT DETECTED Nasal RSV (PCR) NOT DETECTED Nasal B.pertussis DNA PCR NOT DETECTED Nasal C.pneumoniae (PCR) NOT DETECTED Torito Human Metapneumo PCR NOT DETECTED Nasal M.pneumoniae (PCR) NOT DETECTED Nasal SARS-CoV-2 (PCR) NOT DETECTED Group A Strep Rapid Negative - Rads (name of study) cxr Relevant Findings:: Final report received (No acute cardiopulmonary process) PD Medical Decision Making - ED course Complexity details: reviewed old records, reviewed results, re-evaluated patient, considered differential, d/w patient, d/w family ED course: 77-year-old female presents to the emergency department for evaluation of sore throat, fevers generalized malaise and cough that began 2 days ago. Was seen at a local walk-in clinic who who advised her to come to the ER for further evaluation. The patient does have a history of chronic lymphocytic leukemia for which she is on maintenance treatment with ibrutinib 420. On presentation the patient does have laryngitis. She is afebrile. Here. She has no tachycardia or hypotension. A CBC was obtained which shows a mild leukocytosis with a white count of 10.9. Associated mild anemia essentially unchanged. Her electrolytes did not show any worrisome derangement per my interpretation. Rapid strep was negative. A culture is pending. Respiratory PCR was negative. A chest x-ray showed no findings to suggest a pneumonia or pleural effusion. Her urine however was grossly positive for findings of infection. I discussed with patient the findings of infection in the urine. Given the associated severe sore throat we will elect to start her on Vantin a cephalosporin which should adequately treat both any urinary tract infection as well as subsequent bacteria that may culture from her throat swab. We did attempt to contact the oncology group (Dr. Darnell)however we were unable to successfully reach oncology on-call. However despite this, given the history of CLL she does not present as having a neutropenic fever. Patient will be discharged home. I discussed at length with patient and her the usual emergent return precautions for worsening symptoms despite this treatment today. Departure - Departure Disposition: 01 Home, Self Care Clinical Impression: Sore throat, History of chronic lymphocytic leukemia Acute cystitis Qualifiers: Hematuria presence: without hematuria Qualified Code(s): N30.00 - Acute cystitis without hematuria Condition: Stable Record reviewed to determine appropriate education?: Yes Prescriptions: Cefpodoxime Proxetil [Vantin] 100 mg PO Q12H #14 tablet Lidocaine Topical 4% Soln [Xylocaine Topical 4% Soln] 5 ml MM TID #50 ml Comments: Terri ramos came to the emergency department because for several days you have been having a sore throat fevers headache and generalized malaise. Your rapid strep testing was negative. Your viral testing was negative. Your chest x-ray did not show any findings of pneumonia. Your labs showed a white blood cell count of 10.9. Your urine however showed marked infection. In order to treat your symptoms I am sending a prescription for an antibiotic called Lin to the [facility] in [place]. If your throat culture is positive Vantin is an antibiotic that would likely treat any cultures in your throat. In order to help manage the pain I would like you to gargle with warm salt water 2- 3 times a day. A prescription for lidocaine has been [facility] to the [facility] as well. You can take 5 mL and gargle with it 3 times a day. After gargling swallow the medication. With the antibiotics I would expect improved symptoms over the next 48 to 72 hours. If not improving please return to the ER for repeat evaluation
[2022-08-31 18:31] LABS: BASOPHILS # (AUTO) 0.1 10^3/uL (0.0-0.1); BASOPHILS % (AUTO) 0.6 %; EOSINOPHILS % (AUTO) 0.1 %; HCT - HEMATOCRIT 40.1 % (37.0-47.0); LYMPHOCYTES # (AUTO) 2.5 10^3/uL (1.5-3.5); LYMPHOCYTES % (AUTO) 22.8 %; MEAN CORPUSCULAR HEMOGLOBIN 30.1 pg (27.0-31.0); MEAN CORPUSCULAR HGB CONC 32.4 g/dL (32.0-36.0); MEAN CORPUSCULAR VOLUME 92.8 fL (81.0-99.0); MEAN PLATELET VOLUME 11.9 fL (7.9-10.8); MONOCYTES # (AUTO) 1.2 10^3/uL (0.0-1.0); MONOCYTES % (AUTO) 10.7 %; NEUTROPHILS # (AUTO) 7.1 10^3/uL (1.5-6.6); NEUTROPHILS % (AUTO) 65.5 %; PLT - PLATELET COUNT 185 10^3/uL (130-450); RED BLOOD COUNT 4.32 10^6/uL (4.20-5.40); RED CELL DISTRIBUTION WIDTH 15.3 % (12.0-15.0); WHITE BLOOD COUNT 10.9 x10^3/uL (4.8-10.8)
--- NOTE | 2022-08-31 18:37 | XRAY Report ---
PROCEDURE: Chest 1 View X-Ray INDICATIONS: cough, fever, history of CLL TECHNIQUE: One view of the chest was acquired. COMPARISON: None. FINDINGS: Surgical changes and devices: None. Lungs and pleura: No pleural effusions or pneumothorax. Lungs are clear. Mediastinum: Mediastinal contours appear normal. Heart size is normal. Bones and chest wall: No suspicious bony lesions. Overlying soft tissues appear unremarkable. Note is made of left shoulder arthroplasty. IMPRESSION: No acute cardiopulmonary disease. Reviewed by: Urban Matt MD on 08/31/2022 6:36 PM PDT Approved by: Urban Matt MD on 08/31/2022 6:36 PM PDT Station ID: [id number]
[2022-08-31 18:42] LABS: ALBUMIN 3.8 g/dL (3.2-5.5); ALBUMIN/GLOBULIN RATIO 1.3 (1.0-2.2); BILIRUBIN,TOTAL 1.5 mg/dL (0.2-1.0); CREATININE 0.7 mg/dL (0.4-1.0); POTASSIUM 3.6 mmol/L (3.5-5.0); TOTAL PROTEIN 6.8 g/dL (6.7-8.2)
[2022-08-31 18:55] LABS: BILIRUBIN,URINE NEGATIVE (NEGATIVE); CLARITY,URINE CLOUDY (CLEAR); GLUCOSE, URINE (UA) NEGATIVE (NEGATIVE); KETONES,URINE (UA) 40 mg/dL (NEGATIVE); LEUKOCYTE ESTERASE, URINE LARGE (NEGATIVE); NITRITE,URINE POSITIVE (NEGATIVE); OCCULT BLOOD,URINE MODERATE (NEGATIVE); PROTEIN,URINE TRACE mg/dL (NEGATIVE); UROBILINOGEN,URINE 0.2 (NORMAL) E.U./dL (NORMAL)
[2022-08-31 19:04] LABS: BACTERIA,URINE Many /HPF (None Seen); SQUAMOUS EPITHELIAL CELL,UR RARE Squamous (<= Few); WBC,URINE >25 /HPF (0-5)
[2022-08-31 19:08] LABS: RAPID STREP SCREEN Negative (Negative)
[2022-08-31 19:50] LABS: B. PARAPERTUSSIS- RESP PCR PAN NOT DETECTED; B. PERTUSSIS- RESP PCR PANEL NOT DETECTED; C. PNEUMONIAE- RESP PCR PANEL NOT DETECTED; CORONAVIRUS 229E-RESP PCR NOT DETECTED; CORONAVIRUS HKU1-RESP PCR NOT DETECTED; CORONAVIRUS NL63-RESP PCR NOT DETECTED; CORONAVIRUS OC43-RESP PCR NOT DETECTED; HUMAN METAPNEUMOVIRUS NOT DETECTED; INFLUENZA A- RESP PCR PANEL NOT DETECTED; INFLUENZA B - RESP PCR PANEL NOT DETECTED; M. PNEUMONIAE- RESP PCR PANEL NOT DETECTED; PARAINFLUENZA VIRUS 1 NOT DETECTED; PARAINFLUENZA VIRUS 2 NOT DETECTED; PARAINFLUENZA VIRUS 3 NOT DETECTED; PARAINFLUENZA VIRUS 4 NOT DETECTED; RHINOVIRUS/ENTEROVIRUS NOT DETECTED; RSV- RESP PCR PANEL NOT DETECTED; SARS-CoV-2 -RESP PCR PANEL NOT DETECTED
[2022-08-31] MEDS ORDERED: LIDOCAINE VISCOUS 2% 15 ML UDC MM STA (20:21)
[2022-08-31 20:50] VITALS: BP 155/70
[2022-08-31] MEDS ORDERED: CEFPODOXIME PROXETIL 100 MG TABLET PO SCH (21:00)
== END 2022-08-31 20:58 | disposition home or self-care (01) ==
LOC: ED 17:50
DX: J02.9 Acute pharyngitis, unspecified (principal); N30.00 Acute cystitis without hematuria; C91.10 Chronic lymphocytic leukemia of B-cell type not having achieved remission; Z20.822 Contact with and (suspected) exposure to COVID-19
CPT/HCPCS: 36415; 71045; 80053; 81001; 83690; 85025; 87040; 87070; 87086; 87181; 87430; 87633; 99284; A9270; 81003

== ENCOUNTER 2022-09-03 09:55 | Outpatient (CLI) | payer MEDICARE, OTHER ==
[2022-09-03 10:42] LABS: THYROID STIMULATING HORMONE 3.09 uIU/mL (0.34-5.60)
[2022-09-03 10:47] LABS: CHOL/HDL RATIO 2.8 (<4.4); CHOLESTEROL 155 mg/dL; HDL CHOLESTEROL 55 mg/dL; LDL CHOLESTEROL,CALCULATED 78 mg/dL; LDL/HDL RATIO 1.4 (<4.4); TRIGLYCERIDES 110 mg/dL; VLDL CHOLESTEROL 22 mg/dL
[2022-09-03 13:51] LABS: ESTIMATED AVERAGE GLUCOSE 111 mg/dL (70-100); HEMOGLOBIN A1c% 5.5 % (4.27-6.07)
== END 2022-09-03 09:56 | disposition home or self-care (01) ==
LOC: LAB 09:55
PROVIDERS: ATTEND Family Medicine
DX: I10 Essential (primary) hypertension (principal); R73.9 Hyperglycemia, unspecified; E78.5 Hyperlipidemia, unspecified
CPT/HCPCS: 36415; 80061; 83036; 83721; 84443

== ENCOUNTER 2022-09-26 08:05 | Outpatient (CLI) | payer MEDICARE, OTHER ==
--- NOTE | 2022-09-27 10:16 | Mammography Report ---
BILATERAL DIGITAL SCREENING MAMMOGRAM 3D/2D: 09/26/2022 CLINICAL: Routine screening. Comparison is made to exams dated: 11/20/2019 mammogram, 08/05/2018 mammogram, and 08/05/2017 mammogram - [facility]. Both breasts are heterogeneously dense, which may obscure small masses (category c / 51-75% glandular tissue). No significant masses, calcifications, or other findings are seen in either breast. There has been no significant interval change. IMPRESSION: NEGATIVE There is no mammographic evidence of malignancy. A 1 year screening mammogram is recommended. Based on the Tyrer Cuzick model (a risk assessment model) the patients lifetime risk is 4.2% and her 10 year risk is 0.0%. According to the ACR, ACS, and NCCN guidelines, an annual breast MRI exam che g with mammogram is recommended if the patients lifetime risk is 20% or greater. This exam was interpreted at Station ID: [id number]. NOTE: For mammograms, a report in lay terms will be sent to the patient. Approximately 15% of breast malignancies will not be visualized mammographically. In the management of a palpable breast mass, a negative mammogram must not discourage biopsy of a clinically suspicious lesion. Electronically Signed By: Barber xavier/juana:09/27/2022 07:31:47 letter sent: No_Letter ACR BI-RADS Category 1: Negative 3341F PARENCHYMAL PATTERN: (D) - The breast(s) demonstrate(s) heterogeneously dense fibroglandular maria luisa humphries. BI-RADS CATEGORY: (1) - 1 Mammogram [id number] 1 year screening LATERALITY: (B)
== END 2022-09-26 08:06 | disposition home or self-care (01) ==
LOC: DI.N 08:05
DX: Z12.31 Encounter for screening mammogram for malignant neoplasm of breast (principal)

== ENCOUNTER 2022-12-31 14:05 | Outpatient (CLI) | payer MEDICARE, OTHER ==
[2022-12-31 18:31] LABS: BILIRUBIN,URINE NEGATIVE (NEGATIVE); GLUCOSE, URINE (UA) NEGATIVE (NEGATIVE); KETONES,URINE (UA) NEGATIVE (NEGATIVE); LEUKOCYTE ESTERASE, URINE LARGE (NEGATIVE); NITRITE,URINE POSITIVE (NEGATIVE); OCCULT BLOOD,URINE LARGE (NEGATIVE); PROTEIN,URINE 30 mg/dL (NEGATIVE); UROBILINOGEN,URINE 0.2 (NORMAL) E.U./dL (NORMAL)
[2022-12-31 19:04] LABS: BACTERIA,URINE Moderate /HPF (None Seen); CLARITY,URINE SL. CLOUDY (CLEAR); EPITHELIAL CELLS,UR RARE Renal Tubular /HPF (<= Few); RBC,URINE TNTC /HPF (0-5); SQUAMOUS EPITHELIAL CELL,UR NONE SEEN (<= Few); WBC,URINE >25 /HPF (0-5)
== END 2022-12-31 14:06 | disposition home or self-care (01) ==
LOC: LAB.N 14:05
PROVIDERS: ATTEND Physician Assistant Medical
DX: N39.0 Urinary tract infection, site not specified (principal)
CPT/HCPCS: 81001; 87086; 87181

== ENCOUNTER 2023-01-14 16:00 | Outpatient (CLI) | payer MEDICARE, OTHER ==
[2023-01-14 18:02] LABS: BILIRUBIN,URINE NEGATIVE (NEGATIVE); GLUCOSE, URINE (UA) NEGATIVE (NEGATIVE); KETONES,URINE (UA) NEGATIVE (NEGATIVE); LEUKOCYTE ESTERASE, URINE MODERATE (NEGATIVE); NITRITE,URINE NEGATIVE (NEGATIVE); OCCULT BLOOD,URINE LARGE (NEGATIVE); PH,URINE 6.5 PH (5.0-7.5); PROTEIN,URINE NEGATIVE (NEGATIVE); UROBILINOGEN,URINE 0.2 (NORMAL) E.U./dL (NORMAL)
[2023-01-14 18:12] LABS: CLARITY,URINE CLOUDY (CLEAR)
[2023-01-14 18:36] LABS: BACTERIA,URINE Moderate /HPF (None Seen); SQUAMOUS EPITHELIAL CELL,UR NONE SEEN (<= Few); WBC,URINE >25 /HPF (0-5)
== END 2023-01-14 16:01 | disposition home or self-care (01) ==
LOC: LAB.N 16:00
PROVIDERS: ATTEND Physician Assistant Medical
DX: N39.0 Urinary tract infection, site not specified (principal)
CPT/HCPCS: 81001; 81003; 87086; 87181

== ENCOUNTER 2024-01-31 10:42 | Outpatient (CLI) | payer MEDICARE, OTHER ==
[2024-01-31 12:19] LABS: CREATININE 0.7 mg/dL (0.6-1.3)
[2024-01-31] MEDS ORDERED: GADOTERATE MEGLUMINE 7.5 MMOL/15 ML VIAL ONE (12:48)
[2024-01-31] MEDS: GADOTERATE MEGLUMINE 7.5 MMOL/15 ML VIAL IVP ONE (13:53)
--- NOTE | 2024-01-31 15:26 | MRI Report ---
PROCEDURE: Brain W/WO INDICATIONS: MENINGIOMA CONTRAST: CLARISCAN 14.6 ML TECHNIQUE: Noncontrast axial T1 spin echo, axial T2 fast spin echo, sagittal and axial FLAIR, coronal T2 fast sp in echo, axial gradient echo, axial diffusion and ADC through the brain. After the administration of contrast, axial and coronal T1 spin echo with fat saturation through the brain. COMPARISON: None. FINDINGS: Image quality: Excellent. CSF spaces: Basal cisterns are patent. No extra-axial fluid collections. Ventricles are normal in size and shape. Brain: No midline shift. There is a small anterior left frontal meningioma near the midline which me asures 1.5 x 1.3 x 1.5 cm. There is a small amount of subjacent vasogenic edema. There is very minima l mass effect on the frontal horn of the left lateral ventricle. No abnormal intracranial enhancement . There is cerebral volume loss for age. There is mild periventricular white matter chronic small v essel ischemic change. The brainstem appears normal. Diffusion-weighted images demonstrate no acute ischemic insults. No chronic ischemic insults. Normal intravascular flow voids are present. Skull and face: Calvarial marrow is normal in signal. Orbits appear normal. Sinuses: Sinuses and mastoids appear clear. IMPRESSION: 1. Anterior left frontal parafalcine meningioma with a small amount of subjacent vasogenic edema. 2. Age-related volume loss and mild small vessel ischemic change.. Reviewed by: Aden Francis MD on 01/31/2024 3:24 PM PDT Approved by: Aden Francis MD on 01/31/2024 3:24 PM PDT Station ID: [id number]
== END 2024-01-31 10:43 | disposition home or self-care (01) ==
LOC: LAB 10:42
PROVIDERS: ATTEND Nurse Practitioner Family
DX: D32.9 Benign neoplasm of meninges, unspecified (principal); G31.89 Other specified degenerative diseases of nervous system; I67.82 Cerebral ischemia
CPT/HCPCS: 36415; 82565